=== PATIENT | female | born 1985 | race Caucasian/White ===

== ENCOUNTER 2016-10-04 17:55 | Emergency (ER) | payer OTHER ==
[~2016-10-04] VITALS: Ht 154.9 cm; Wt 73.0 kg
[~2016-10-04 17:55] MED LIST: TRAM100T8 PO
[2016-10-04 18:03] VITALS: Ht 154.9 cm; Wt 73.0 kg
--- NOTE | 2016-10-04 20:53 | RADRPT ---
PROCEDURE: XR Foot. CLINICAL INDICATION: Pain TECHNIQUE: Three views of the right foot are available for review. COMPARISON: None available FINDINGS: There is no acute osseous or articular abnormality. No evidence for fracture. Bone mineral density is preserved. The articular surfaces are smooth without evidence of marginal erosions. The soft tis sues are intact without evidence of calcifications. IMPRESSION: 1. No acute osseous abnormality. RPTAT: HH .Rui Haskins MD, MD Date Time Electronically viewed and signed by .Rui Haskins MD, on 10/04/2016 20:53 .d/
[2016-10-04] MEDS ORDERED: NAPR-260 PO (21:03)
--- NOTE | 2016-10-05 00:47 | ERD ---
ER Documentation Chief Complaint Date/Time DATE: 10/05/16 TIME: 00:44 Chief Complaint RIGHT BIG TOE PAIN S/P HITTING IT AGAINST THE COUCH MONDAY NIGHT HPI This patient is a 31-year-old female presenting to the emergency department with complaints of a right second toe pain which onset 4 days ago after injury. She states she slammed it against a couch. She has taken no medication for relief of symptoms. Pain is worsening. She states she heard a pop. No other symptoms or injuries reported. ROS All systems reviewed and are negative except as per history of present illness. Medications Home Meds Active Scripts Naproxen* (Naprosyn*) 500 Mg Tablet, 500 MG PO BID Y for PAIN AND/OR INFLAMMATION, #30 TAB Prov:YVONNE JENKINS PA-C 10/04/16 Tramadol Hcl* (Ultram* ER) 100 Mg Tab.sr.24h, 100 MG PO DAILY for 3 Days, TAB.SA Prov:WALLACE FOX 11/06/15 Allergies Allergies: Coded Allergies: latex (Verified Allergy, Mild, 05/04/15) RASHES PMhx/Soc History of Surgery: Yes (3 c/s, gallbladder. ) Anesthesia Reaction: No Hx Neurological Disorder: Yes (diabetic neuropathy) Hx Respiratory Disorders: No Hx Cardiac Disorders: No Hx Psychiatric Problems: No Hx Miscellaneous Medical Probl: Yes (Liver failure,kidney failure) Hx Alcohol Use: No Hx Substance Use: Yes (marijuana last use 10/03) Hx Tobacco Use: Yes (5 cigs/ day) Smoking Status: Current every day smoker Physical Exam Vitals Vital Signs Date Time Temp Pulse Resp B/P Pulse Ox O2 Delivery O2 Flow Rate FiO2 10/04/16 18:03 99.2 86 20 119/69 96 Physical Exam Const: Nontoxic, well-appearing female in no acute distress. Head: Atraumatic Eyes: Normal Conjunctiva ENT: Normal External Ears, Nose and Mouth. Neck: Full range of motion..~ No meningismus. Skin: No petechiae or rashes Back: No midline or flank tenderness Ext: There is mild edema with ecchymosis noted to the second toe of the right foot. There is some ecchymosis noted to the dorsum of the right foot. There is no significant erythema. 2+ pedal pulses noted. Neur: Awake and alert Psych: Normal Mood and Affect Results 24 hrs [facility] [address] [id number] Radiology Main Line: [phone] DIAGNOSTIC IMAGING REPORT Patient: CHRISTY GOETZ : 1985 Age: 31 Sex: F MR #: [id number] DOS: 10/04/16 0000 Ordering MD: YVONNE JENKINS PA-C Location: FTE Room/Bed: PROCEDURE: XR Foot. CLINICAL INDICATION: Pain TECHNIQUE: Three views of the right foot are available for review. COMPARISON: None available FINDINGS: There is no acute osseous or articular abnormality. No evidence for fracture. Bone mineral density is preserved. The articular surfaces are smooth without evidence of marginal erosions. The soft tissues are intact without evidence of calcifications. IMPRESSION: 1. No acute osseous abnormality. RPTAT: HH .Rui Haskins MD, MD Date Time Electronically viewed and signed by .Rui Haskins MD, MD on 10/04/2016 20:53 .d/ CC: YVONNE JENKINS PA-C Procedures/MDM 31-year-old female presents to the emergency department secondary to complaints of right second toe pain after injury 4 days ago. Clinical examination shows contusions of the right foot and right second toe. Negative x-ray images of the right foot were obtained and interpreted by the radiologist. The patient was not given pain medication in the department because she states she is not able to have most analgesics due to liver problems. The patient is stable for outpatient management. She was given a prescription for naproxen for pain. She was advised to check warning labels and make sure she is able to take the medication due to her liver complications. She understands the discharge plan and diagnosis. She was given a copy of her x-ray results. Close follow-up with the primary care physician advised. Strict ER return precautions were discussed. Departure Diagnosis: Primary Impression: Sprain of toe, second, right Condition: Fair Patient Instructions: Sprain Toe Additional Instructions: Follow up with your PCP within the next 1-3 days for a repeat evaluation and a possible referral to a specialist, if required. Return the the emergency department immediately if symptoms worsen or change. If you have any questions regarding medications, ask your pharmacist or us before you leave. If any adverse reactions, occur while taking your medications, discontinue the treatment and return to the emergency department immediately. If any new or worsening symptoms, uncontrolled fevers, or other unexplained symptoms occur, return to the emergency department immediately. Take your medications as directed, and complete the entire course of treatment. YVONNE JENKINS PA-C Oct 05, 2016 00:47
== END 2016-10-04 21:33 | disposition home or self-care (01) ==
LOC: FTE 17:55
DX: S93.501A Unspecified sprain of right great toe, initial encounter (principal); F17.210 Nicotine dependence, cigarettes, uncomplicated; W23.1XXA Caught, crushed, jammed, or pinched between stationary objects, initial encounter; Y92.9 Unspecified place or not applicable
CPT/HCPCS: 73630

== ENCOUNTER 2017-01-16 13:27 | Day surgery (SDC) | payer OTHER ==
[~2017-01-16] VITALS: Ht 154.9 cm; Wt 75.0 kg
[~2017-01-16 13:27] MED LIST changes: +NAPR-260 PO
[2017-01-16] MEDS ORDERED: NO DAILY MEDS (14:18)
[2017-01-16 14:33] VITALS: Ht 154.9 cm; Wt 75.0 kg
[2017-01-16] MEDS ORDERED: PROPOFOL 40 ML ONE (16:58)
[2017-01-16 18:06] VITALS: BP 124/87; RESP 14
--- NOTE | 2017-01-16 20:36 | OPPN ---
Date/Time of Note Date/Time of Note DATE: 01/16/17 TIME: 20:32 Proc Note GI Procedure Date 01/16/17 Pre-procedure Diagnosis * Dyspepsia Post-procedure Diagnosis Impression: * Erosive distal esophagitis * Severe erosive gastritis. Rule out H. pylori infection. Biopsies obtained * Otherwise normal EGD Plan: * PPI therapy * Review pathology * Follow-up as previously scheduled . Procedure Performed: Other (EGD with biopsies) Surgeon INOCENCIA GODOY MD Supervisor [employer] Department none Anesthesia Type: MAC Anesthesiologist: KITTY BURRELL Tourniquet Time none EBL none Transfusion required none Biopsy 1: Gastric body and antrum/rule out H. pylori infection Grafts/Implants none Tubes/Drains none Complication(s) none Pt Condition post procedure: stable Disposition: home Indications: other (Dyspepsia) Procedure Description Preoperative Diagnosis: After informed consent, with the patient/relatives understanding the procedure, its indications, potential risks and complications, including but not limited to : allergic reaction, bleeding, perforation or infection, and after all pertinent questions were answered to the patients satisfaction, the patient/ relatives signed witnessed informed consent. Following this, premedication was administered slowly IV push under careful cardiovascular and respiratory monitoring with pulse oximetry, automatic blood pressure, and corporate travel coordinator. Once the sedative effect was achieved the patient was place in the left lateral decubitus, the panendoscope was introduced and advanced under visual control. Careful examination of the upper gastrointestinal tract, both on insertion as well as withdrawal of the instrument disclosing the following findings: ESOPHAGUS: the mucosa of the entire esophagus was carefully examined and showed the following findings: There is erythema and edema and significant erosion of the mucosa of the distal esophagus. Otherwise the mucosa appears within normal limits. There is no evidence of varices, neoplasm, or stricture. No Hiatal Hernia identified. STOMACH: Upon entrance to the stomach air was insufflated, the gastric abraham distended normally. The mucosa of the fundus, body and antrum of the stomach was carefully examined both head-on and on retroflexion, and showed the following findings: There is significant erythema edema and erosions of the mucosa in the antrum. Biopsies were obtained to rule out H. pylori infection. Otherwise the mucosa appears within normal limits with no abnormalities. There is no evidence of ulcers or neoplasm. PYLORUS: The pylorus was carefully examined and showed the following findings: the pylorus appears patent and within normal limits, with no evidence of gastric outlet obstruction. DUODENUM: The duodenal mucosa was carefully examined in the duodenal bulb as well as the second portion of the duodenum and showed the following findings: the mucosa appears unremarkable with no evidence of duodenitis, ulcer or neoplasm. Copies To: CC: INOCENCIA GODOY MD, MORDO MD Jan 16, 2017 20:36
--- NOTE | 2017-01-16 20:39 | OPPN ---
Date/Time of Note Date/Time of Note DATE: 01/16/17 TIME: 20:36 Proc Note GI Procedure Date 01/16/17 Pre-procedure Diagnosis * Abdominal pain Post-procedure Diagnosis Impression: * Normal colonic mucosa to cecum. * Rule out microscopic, lymphocytic or collagenous colitis. Biopsies were obtained * Moderate-sized internal hemorrhoids Plan: * Review pathology * Follow-up as previously scheduled Procedure Performed: Other (Colonoscopy with biopsies) Surgeon see signature line Supervisor [employer] none Anesthesia Type: ROSEMARY Anesthesiologist: KITTY BURRELL Tourniquet Time none EBL none Transfusion required none Biopsy 1: Right side of the colon Biopsy 2: Left side of the colon Grafts/Implants none Tubes/Drains none Complication(s) none Pt Condition post procedure: stable Disposition: home Indications: other (Abdominal pain) Procedure Description After informed consent, with the patient/relatives understanding the procedure, its indications and potential risks and complications, including but not limited to: Allergic reaction, bleeding, perforation, infection, and after all pertinent questions were answered to the patient's satisfaction, the patient/ relatives signed the witnessed informed consent. Following this, premedication was administered slowly IV push under careful cardiovascular and respiratory monitoring with pulse OXIMETRY, automatic blood pressure, and gm mobile. Once the sedative effect was achieved, the patient was placed in the left lateral decubitus position, digital rectal examination was performed. The colonoscope was then introduced and advanced under visual control throughout all segments of the colon including: the rectum, sigmoid, descending colon, splenic flexure, transverse colon, hepatic flexure, ascending colon and finally reaching the cecum which was clearly identified by transillumination, finger indentation and the ileocecal valve. Careful examination of the mucosa of the lower gastrointestinal tract both on insertion as well as withdrawal of the instrument disclosed the following findings: PREPARATION QUALITY: [Adequate], RECTAL EXAM: The anorectal area was visualized examined and digital rectal examination performed with the following findings: No evidence of perirectal disease, no masses. COLONIC MUCOSA: The mucosa of all segments of the colon was carefully examined and showed the following findings: the examined mucosa appears within normal limits. There is no evidence of inflammatory changes, diverticular formation, polyps or other neoplasms, vascular malformation, or any other abnormality. Random biopsies were obtained of the right and left side of the colon. Moderate-sized internal hemorrhoids are present. The instrument was then withdrawn, the patient tolerated the procedure well and was transferred out of the Endoscopy Suite awake and in good condition to continue recovery under observation. Copies To: CC: INOCENCIA GODOY MD, MORDO MD Jan 16, 2017 20:39
== END 2017-01-16 18:50 | disposition home or self-care (01) ==
LOC: GIL 13:27
PROVIDERS: ATTEND Internal Medicine Gastroenterology
DX: R10.13 Epigastric pain (principal); R12 Heartburn; R14.0 Abdominal distension (gaseous); K90.49 Malabsorption due to intolerance, not elsewhere classified; R11.2 Nausea with vomiting, unspecified; R19.7 Diarrhea, unspecified; K76.0 Fatty (change of) liver, not elsewhere classified; E11.9 Type 2 diabetes mellitus without complications; I10 Essential (primary) hypertension; E78.00 Pure hypercholesterolemia, unspecified; K20.9 Esophagitis, unspecified; K25.9 Gastric ulcer, unspecified as acute or chronic, without hemorrhage or perforation; K21.9 Gastro-esophageal reflux disease without esophagitis; K29.50 Unspecified chronic gastritis without bleeding
CPT/HCPCS: 43239; 45380; 84703; 88305; 88312; Z7610

== ENCOUNTER 2017-02-28 12:15 | Emergency (ER) | payer OTHER ==
[~2017-02-28] VITALS: Ht 162.6 cm; Wt 70.0 kg
[~2017-02-28 12:15] MED LIST changes: -NAPR-260 PO; +NO DAILY MEDS; -TRAM100T8 PO
[2017-02-28 12:23] VITALS: Ht 162.6 cm; Wt 70.0 kg
[2017-02-28] MEDS ORDERED: SOD CHLORIDE 0.9% 1,000 ML IV STA (12:24)
[2017-02-28] MEDS ORDERED: ONDANSETRON 4 MG INJ IV STA (12:24)
--- NOTE | 2017-02-28 13:16 | RADRPT ---
PROCEDURE: Chest x-ray CLINICAL INDICATION: Abdominal pain TECHNIQUE: Chest single view COMPARISON: 11/06/2015 FINDINGS: The heart is normal in size. The pulmonary vessels are normal in caliber. The lungs are clear. Th e costophrenic angles are sharp. The visualized bony thorax is unremarkable. IMPRESSION: No acute cardiopulmonary disease. No free air under the diaphragms RPTAT: HH .Bryan Blanco MD, MD Date Time Electronically viewed and signed by .Bryan Blanco MD, on 02/28/2017 13:15 .W/
--- NOTE | 2017-02-28 13:20 | ERD ---
ER Documentation Chief Complaint Chief Complaint BIB RA FOR EVAL OF N/V TODAY HPI This is a 32-year-old female with a past medical history of diabetes, Klein, gastritis, recent diagnosis of colitis, hemorrhoids who is presenting with a transient episode of lightheadedness, nausea and nonbilious nonbloody vomiting during a plasma donation. The patient reportedly needed money, so she went to donate plasma. She said that typically this takes around an hour, but they completed it in around 30 minutes today. She felt that was pretty fast. After completion but before actually disconnecting her from the donation machine, she started the symptoms as described above. An ambulance was called at that time. They laid her flat. Since that time, she has remained mildly nauseated, but she no longer feels lightheaded or dizzy. She does not feel like she is actually going to throw up any longer. The patient denies feeling sick recently. The patient denies fever or chills. The patient has had no headache or vision changes. The patient does not endorse neck or back pain. The patient has had no chest pain or shortness of breath or trouble breathing. The patient denies abdominal pain or changes to bowel movements or urination. The patient has had no focal deficits. The patient has had no weakness or numbness or tingling to the face or extremities. ROS All systems reviewed and are negative except as per history of present illness. Medications Home Meds Discontinued Reported Medications [No Daily Meds] No Conflict Check 01/16/17 Allergies Allergies: Coded Allergies: latex (Verified Allergy, Mild, 05/04/15) RASHES PMhx/Soc History of Surgery: Yes ( 3, cholecystectomy, colonoscopy) Anesthesia Reaction: No Hx Neurological Disorder: No Hx Respiratory Disorders: No Hx Cardiac Disorders: Yes (HTN, DM) Hx Psychiatric Problems: No Hx Miscellaneous Medical Probl: Yes Hx Alcohol Use: No Hx Substance Use: Yes (MARIJUANA LAST USED TODAY) Hx Tobacco Use: Yes Smoking Status: Current every day smoker FmHx Family History: diabetes Physical Exam Vitals Vital Signs Date Time Temp Pulse Resp B/P Pulse Ox O2 Delivery O2 Flow Rate FiO2 02/28/17 16:04 97.9 65 18 113/65 100 Room Air 02/28/17 15:06 74 19 98/52 99 Room Air 02/28/17 12:23 97.7 98 18 110/74 99 Physical Exam Const: No apparent distress, well-developed, well-nourished Head: Normocephalic, Atraumatic Eyes: Normal Conjunctiva. Extraocular movements intact. Pupils equal, round and reactive to light ENT: Normal External Ears, Nose and Mouth. Neck: Full range of motion. No meningismus. Resp: Clear to auscultation bilaterally, No wheezes, rales or rhonchi Cardio: Regular rhythm. + Mild bradycardia. No murmurs, rubs or gallops Abd: Soft, non distended. + Mild epigastric tenderness. Normal bowel sounds Skin: No petechiae or rashes Back: No midline tenderness. No CVA tenderness Ext: No cyanosis, or edema Neur: Awake and alert, oriented 4. Cranial nerves intact. No facial droop. Normal strength, sensation and coordination. Psych: Normal Mood and Affect Result Diagram: 02/28/17 1230 02/28/17 1405 Results 24 hrs Laboratory Tests Test 02/28/17 12:30 02/28/17 14:05 02/28/17 14:50 White Blood Count 9.410^3/ul Red Blood Count 4.9710^6/ul Hemoglobin 14.7g/dl Hematocrit 43.2% Mean Corpuscular Volume 86.9fl Mean Corpuscular Hemoglobin 29.6pg Mean Corpuscular Hemoglobin Concent 34.0g/dl Red Cell Distribution Width 11.8% Platelet Count 78856^3/UL Mean Platelet Volume 9.2fl Neutrophils % 73.1% Lymphocytes % 21.7% Monocytes % 3.9% Eosinophils % 0.7% Basophils % 0.3% Nucleated Red Blood Cells % 0.0/100WBC Neutrophils # 6.910^3/ul Lymphocytes # 2.010^3/ul Monocytes # 0.410^3/ul Eosinophils # 0.110^3/ul Basophils # 0.010^3/ul Nucleated Red Blood Cells # 0.010^3/ul Sodium Level 141mmol/L Potassium Level 4.2mmol/L Chloride Level 108mmol/L Carbon Dioxide Level 25mmol/L Anion Gap 12 Blood Urea Nitrogen 10mg/dl Creatinine 0.54mg/dl Glucose Level 198mg/dl Calcium Level 8.5mg/dl Total Bilirubin 0.3mg/dl Direct Bilirubin 0.00mg/dl Indirect Bilirubin 0.3mg/dl Aspartate Amino Transf (AST/SGOT) 43IU/L Alanine Aminotransferase (ALT/SGPT) 38IU/L Alkaline Phosphatase 44IU/L Total Protein 6.5g/dl Albumin 3.5g/dl Globulin 3.00g/dl Albumin/Globulin Ratio 1.16 Lipase 224U/L Urine Color YELLOW Urine Clarity CLEAR Urine pH 6.0 Urine Specific [place] 1.016 Urine Ketones NEGATIVEmg/dL Urine Nitrite NEGATIVEmg/dL Urine Bilirubin NEGATIVEmg/dL Urine Urobilinogen NEGATIVEmg/dL Urine Leukocyte Esterase NEGATIVELeu/ul Urine Hemoglobin NEGATIVEmg/dL Urine Glucose 1+mg/dL Urine Total Protein NEGATIVEmg/dl Current Medications Medications (Trade) Dose Ordered Sig/Luis Armando Route PRN Reason Start Time Stop Time Status Last Admin Dose Admin Sodium Chloride (NS) 1,000 ml @ 1,000 mls/hr Q1H STAT IV 02/28/17 12:24 02/28/17 13:23 DC 02/28/17 13:14 Ondansetron HCl (Zofran Inj) 4 mg ONCE STAT IV 02/28/17 12:24 02/28/17 12:27 DC 02/28/17 13:14 Procedures/[facility] MDM The patient's presentation warrants further investigation. The patient's presenting with signs and symptoms of presyncope, likely orthostasis versus vasovagal, related to her recent blood donation. The patient was laid flat and her symptoms have been improving. I will obtain blood work to evaluate for any metabolic abnormality and anemia. I have low suspicion for infection. This is a young female and I have low suspicion for acute coronary syndrome, but an EKG will be completed to evaluate for any cardiac pathology. LABS The patient's blood work was obtained and reviewed. The patient's CBC shows no leukocytosis and no left shift. The patient is afebrile and does not appear systemically ill. I do not suspect a systemic infection. The patient is not anemic today. The patient's platelet count is unremarkable. The patient's CMP shows no signs of metabolic or electrolyte emergencies. The patient has unremarkable renal and hepatic function testing. The patient's urinalysis showed no signs of hematuria or infection. The patient is not based on POC testing in the ER. EKG EKG read by me: Rate/Rhythm: Regular rhythm, sinus bradycardia at 56 bpm. Intervals: Normal [place]: Normal Impression: Sinus bradycardia, no evidence of acute ischemia IMAGING CXR The heart is normal in size. The pulmonary vessels are normal in caliber. The lungs are clear. The costophrenic angles are sharp. The visualized bony thorax is unremarkable. No acute cardiopulmonary disease. No free air under the diaphragms Electronically viewed and signed by .Bryan Blanco MD, on 02/28/2017 13:15 TREATMENT/DISPOSITION The patient's presentation is overall reassuring. She is given IV fluids and Zofran in the emergency department with complete resolution of her symptoms. She is not clinically orthostatic. She is ambulatory without issue. At this time, I do suspect presyncope related to her blood draw. Orthostasis versus vasovagal presyncope are both possibilities. The patient was initially bradycardic in the emergency department, but this resolved on its own. At this time, I feel that the patient stable for discharge. The patient will need follow-up with his primary care physician in 2-3 days. The patient will be given strict precautions with which to return to the emergency department. Disclaimer: Inadvertent spelling and grammatical errors are likely due to EHR/ dictation software use and do not reflect on the overall quality of patient care. Note that the electronic time recorded on this note does not necessarily reflect the actual time of the patient encounter. Departure Diagnosis: Primary Impression: Pre-syncope Condition: Stable ANDREW BETANCOURT MD Feb 28, 2017 13:19
[2017-02-28 13:23] LABS: BASOPHILS % 0.3 % (0.0-2.0); EOSINOPHILS # 0.1 10^3/ul (0.0-0.5); EOSINOPHILS % 0.7 % (0.0-7.0); HEMATOCRIT 43.2 % (37.0-47.0); HEMOGLOBIN 14.7 g/dl (12.0-16.0); LYMPHOCYTES % 21.7 % (15.0-51.0); MEAN CORPUSCULAR HEMOGLOBIN 29.6 pg (29.0-33.0); MEAN CORPUSCULAR VOLUME 86.9 fl (82.0-101.0); MEAN PLATELET VOLUME 9.2 fl (7.4-10.4); MONOCYTE # 0.4 10^3/ul (0.3-0.9); MONOCYTES % 3.9 % (0.0-11.0); NEUTROPHIL # 6.9 10^3/ul (1.6-7.5); NEUTROPHILS % 73.1 % (39.0-77.0); PLATELET COUNT 163 10^3/UL (140-415); RED BLOOD COUNT 4.97 10^6/ul (4.20-5.40); RED CELL DISTRIBUTION WIDTH 11.8 % (11.5-14.5); WHITE BLOOD COUNT 9.4 10^3/ul (4.8-10.8)
[2017-02-28 14:54] LABS: ALBUMIN 3.5 g/dl (3.3-4.9); ALBUMIN/GLOBULIN RATIO 1.16; BILIRUBIN,INDIRECT 0.3 mg/dl (0-1.1); BILIRUBIN,TOTAL 0.3 mg/dl (0.2-1.3); CALCIUM 8.5 mg/dl (8.4-10.2); CREATININE 0.54 mg/dl (0.44-1.00); POTASSIUM 4.2 mmol/L (3.5-5.1); TOTAL PROTEIN 6.5 g/dl (6.1-8.1)
[2017-02-28 15:55] LABS: ADD UMIC NO; UR ASCORBIC ACID NEGATIVE (NEGATIVE); UR BILIRUBIN (Dip) NEGATIVE (NEGATIVE); UR BLOOD (Dip) NEGATIVE (NEGATIVE); UR CLARITY CLEAR (CLEAR); UR COLOR YELLOW (YELLOW); UR GLUCOSE (Dip) 1+ mg/dL (NEGATIVE); UR KETONES (Dip) NEGATIVE (NEGATIVE); UR LEUKOCYTE ESTERASE (Dip) NEGATIVE Leu/ul (NEGATIVE); UR NITRITE (Dip) NEGATIVE (NEGATIVE); UR SPECIFIC GRAVITY (Dip) 1.016 (1.003-1.030); UR TOTAL PROTEIN (Dip) NEGATIVE (NEGATIVE); UR UROBILINOGEN (Dip) NEGATIVE (NEGATIVE)
[2017-02-28 16:04] VITALS: BP 113/65; PULSE 65; RESP 18; TEMP 97.9
== END 2017-02-28 16:06 | disposition home or self-care (01) ==
LOC: E/R 12:15
DX: R55 Syncope and collapse (principal); I10 Essential (primary) hypertension; E11.9 Type 2 diabetes mellitus without complications; F17.210 Nicotine dependence, cigarettes, uncomplicated
CPT/HCPCS: 36415; 71010; 80053; 81003; 83690; 85025; 93005; 96374; J2405; J7030; Z7502